=== PATIENT | female | born 2005 | race Caucasian/White ===

== ENCOUNTER 2024-11-07 19:22 | Emergency (ER) | payer OTHER ==
[~2024-11-07] VITALS: Ht 157.5 cm; Wt 70.5 kg
[2024-11-07 20:13] VITALS: BP 112/60; PULSE 86; RESP 16; TEMP 98.4; O2SAT 100
[2024-11-07] MEDS: IBUPROFEN 400 MG TABLET PO ONE (20:19)
[2024-11-07] MEDS: ACETAMINOPHEN 500 MG TABLET PO ONE (20:20)
== END 2024-11-07 22:54 | disposition home or self-care (01) ==
LOC: EMS 19:22
DX: S10.83XA Contusion of other specified part of neck, initial encounter (principal); F32.9 Major depressive disorder, single episode, unspecified; F41.9 Anxiety disorder, unspecified; Y04.2XXA Assault by strike against or bumped into by another person, initial encounter; Y93.89 Activity, other specified; Y92.89 Other specified places as the place of occurrence of the external cause; Y99.8 Other external cause status
CPT/HCPCS: 99283